=== PATIENT | female | born 1960 | race Caucasian/White ===

== ENCOUNTER 2024-12-23 11:31 | Emergency (ER) | payer OTHER, SELFPAY ==
[2024-12-23 12:30] LABS: #Basophils Less than 0.03 10x3/uL (0.0-0.2); #Eosinophils Less than 0.03 10x3/uL (0.0-0.7); #Monocytes 0.51 10x3/uL (0.11-0.59); #Neutrophils 1.71 10x3/uL (1.40-6.50); %Basophils 0.2 % (0.0-1.0); %Eosinophils 0.5 % (0.0-10.0); %Lymphocytes 34.4 % (21.0-51.0); %Monocytes 12.7 % (0.0-10.0); %Neutrophils 42.7 % (42.0-75.0); Hematocrit 16.3 % (36.0-47.0); Hemoglobin 3.8 g/dL (12.0-16.0); Mean Corpuscular Hemoglobin 16.7 pg (27.0-31.0); Mean Corpuscular Volume 71.5 fL (78.0-98.0); Platelet Count 230 10x3/uL (130-400); Red Blood Cell (RBC) Count 2.28 mill/uL (4.20-5.40); White Blood Cell (WBC) Count 4.01 10x3/uL (4.8-10.8)
[2024-12-23 12:39] LABS: ALT (SGPT) Less than 7 U/L (Less than 34); AST (SGOT) 14 U/L (11-34); Albumin 3.5 g/dL (3.1-4.5); Alkaline Phosphatase 93 U/L (40-110); Anion Gap 14 mmol/L (10-20); BUN (Urea Nitrogen) 9 mg/dL (9.8-20.1); Bilirubin, Total 0.3 mg/dL (0.3-1.2); Calc. Creatinine Clearance 0 mL/min (70-130); Calcium 8.4 mg/dL (7.8-10.44); Carbon Dioxide 22 mmol/L (23-31); Chloride 111 mmol/L (98-107); Globulin 2.8 g/dL (2.4-3.5); Glucose 117 mg/dL (80-115); Potassium 3.9 mmol/L (3.5-5.1); Sodium 143 mmol/L (136-145)
[2024-12-23 13:12] LABS: INR-International Normal Ratio 1.1; Prothrombin Time 14.2 sec (12.0-14.7)
[2024-12-23 13:13] LABS: PTT 26.9 sec (22.9-36.1)
[2024-12-23 13:56] LABS: Anisocytosis MODERATE=16-30 cells HPF (0-5); Microcytosis MODERATE=15-30 cells HPF (0-5); Platelet Adequacy Comment Platelets Normal; Polychromasia MODERATE = 3-4 cells HPF (0-2); Schistocytes SLIGHT = 2-5 cells HPF (0-1)
[2024-12-23 16:28] LABS: Bacteria/HPF None Seen HPF (None Seen); CAUTI Indications for Culture Acute Hematuria; Glucose, Urine (Dipstick) Normal (Negative); Leukocyte Negative Leu/uL (Negative); Protein, Urine (Dipstick) Negative (Neg-Trace); RBC/HPF 0-3 HPF (0-3); Specific Gravity, Urine 1.011 (1.002-1.036); WBC/HPF 0-3 HPF (0-3)
[2024-12-23 16:30] LABS: Urine Culture Reflex No No
== END 2024-12-23 18:35 | disposition home or self-care (01) ==
LOC: ERS 11:31
DX: D64.9 Anemia, unspecified (principal); F17.220 Nicotine dependence, chewing tobacco, uncomplicated
CPT/HCPCS: 36430; 71045; 80053; 81001; 83880; 84484; 85025; 85610; 85730; 86850; 86900; 86901; 93005; P9016